=== PATIENT | female | born 2000 | race Caucasian/White ===

== ENCOUNTER 2021-10-08 20:59 | Emergency (ER) | payer OTHER ==
[~2021-10-08] VITALS: Ht 170.2 cm; Wt 68.0 kg
[2021-10-08] MEDS ORDERED: ACETAMINOPHEN 325 MG TAB PO ONE (21:45)
[2021-10-09] MEDS ORDERED: TYLENOL325 MG PO (01:00)
== END 2021-10-09 01:20 | disposition home or self-care (01) ==
LOC: ER 21:02
DX: O26.891 Other specified pregnancy related conditions, first trimester (principal); R10.9 Unspecified abdominal pain; M25.571 Pain in right ankle and joints of right foot; W01.0XXA Fall on same level from slipping, tripping and stumbling without subsequent striking against object, initial encounter; Y93.01 Activity, walking, marching and hiking
CPT/HCPCS: 76705; 76815; 76817; 99284